=== PATIENT | female | born 1945 | race Caucasian/White ===

== ENCOUNTER → 2019-01-29 | Outpatient (CLI) | payer MEDICARE, BC ==
--- NOTE | 2019-01-29 15:55 | P.HPBAR ---
Bariatric H&P - History & Physicial H&P Date: 01/29/19 History & Physicial: Visit/CC: Patient initial contact: Initial weight: Initial weight in pounds: Height: Initial BMI: Last weight: Current weight: Current weight in pounds: Current BMI: [place] body weight (based on NIH guidelines): Excess body weight loss: The patient is a 73 year-old F who presents for Bariatric Assessment. HPI: She reports severe dysphagia and troubles swallowing. She is undergoing 5 months of medical supervised weight loss. She loves 2 hrs away. She has severe reflux and has had her throat stretching 2 days ago. She is looking into weight loss options. Her highest weight is 193 pounds. She has a pacemaker. She reports trouble breathing and has not seen a lung specialist. She reports chest pain with swallowing and taking TUMS without relief. She reports having a hiatal hernia as well. Her gallbladder has been removed. She has a family history of morbid obesity and is brought in by her daughter. ABDOMEN: Soft ASSESSMENT: 1. Dysphagia 2. Morbid obesity PLAN: 1. Labs today 2. Esophogram 3. Hiatal hernia repair 4. Need cardiac clearance 5. Pulmonology referral for her lungs 6. Manometry studies reviewed 7. Will need EGD in the future Bariatric Checklist Checklist: Plan: Checklist: EGD: 1. Hiatal hernia: 2. H. Pylori: HgbA1c: Vitamin D: Smoking: Primary care physician referral: Psychiatry clearance: Cardiology clearance: Sleep study: Diet journal: VTE risk score: VTE risk level: Rehab needs at discharge:
[2019-01-29 16:20] VITALS: BP 114/67; PULSE 71; TEMP 98.2; BMI 38.0
== END | disposition home or self-care (01) ==
LOC: BARWHC3 14:23
PROVIDERS: ATTEND Surgery Plastic and Reconstructive Surgery
DX: R13.10 Dysphagia, unspecified (principal); E66.01 Morbid (severe) obesity due to excess calories; Z68.38 Body mass index [BMI] 38.0-38.9, adult
CPT/HCPCS: 99201

== ENCOUNTER → 2019-02-11 | Outpatient (CLI) | payer MEDICARE, BC ==
[2019-02-11 13:46] LABS: HCT 41.6 % (34.0-46.0); HGB 12.9 gm/dL (11.4-16.0); Hypochromasia Slight; MCH 29.1 pg (25.0-35.0); MCHC 30.9 g/dL (31.0-37.0); Mean Platelet Volume 7.1; Platelet Count 278 k/uL (150-450); RBC 4.42 m/uL (3.80-5.40); RDW 13.6 % (11.5-15.5); WBC 5.1 k/uL (3.8-10.6)
[2019-02-11 13:57] LABS: Partial Thromboplastin Time 22.4 sec (22.0-30.0); Prothrombin Time 10.3 sec (9.0-12.0)
[2019-02-11 19:20] LABS: Iron Saturation 21.37 (12.00-45.00)
[2019-02-11 19:28] LABS: Vitamin D 25 Hydroxy 27.5 ng/mL (30.0-100.0)
[2019-02-11 20:00] LABS: Folate, Serum >24.0 ng/mL
[2019-02-11 20:02] LABS: Parathyroid Hormone Intact 33.8 pg/mL (14.0-72.0)
[2019-02-11 21:26] LABS: African American GFR (CKD) 64.3 (60.0-200.0); Albumin 4.3 g/dL (3.80-4.90); Albumin/Globulin Ratio 1.95 (1.60-3.17); Anion Gap 14.6 mmol/L (4.00-12.00); Calcium 9.6 mg/dL (8.7-10.3); Carbon Dioxide 21.4 mmol/L (21.6-31.8); Globulin 2.2 g/dL (1.6-3.3); LDL Cholesterol,Calculated 83.6 mg/dL (0.0-131.0); Magnesium 1.5 mg/dL (1.5-2.4); Phosphorus 2.9 mg/dL (2.4-5.1); Potassium 5.1 mmol/L (3.5-5.5); Total Bilirubin 0.4 mg/dL (0.3-1.2); Total Protein 6.5 g/dL (6.2-8.2); VLDL Calculation 30.4 mg/dL (5.00-40.00)
[2019-02-12 13:27] LABS: Zinc, Serum 68 ug/dL (60-130)
[2019-02-13 07:19] LABS: Vitamin A 73 ug/dL (38-106)
[2019-02-13 07:25] LABS: Vit B1(Thiamine) 72 ug/L (38-122)
[2019-02-15 10:40] LABS: Selenium 127 mcg/L (63-160)
== END | disposition home or self-care (01) ==
LOC: LABWHC1 13:06
PROVIDERS: ATTEND Surgery Plastic and Reconstructive Surgery
DX: E21.1 Secondary hyperparathyroidism, not elsewhere classified (principal); E44.0 Moderate protein-calorie malnutrition; E55.9 Vitamin D deficiency, unspecified; K74.1 Hepatic sclerosis; D50.9 Iron deficiency anemia, unspecified; K90.9 Intestinal malabsorption, unspecified; K50.90 Crohn's disease, unspecified, without complications; N19 Unspecified kidney failure
CPT/HCPCS: 36415; 80053; 80061; 82306; 82525; 82607; 82728; 82746; 83036; 83540; 83550; 83735; 83970; 84100; 84134; 84255; 84425; 84443; 84590; 84630; 85027; 85610; 85730; 93005

== ENCOUNTER → 2019-02-18 | Outpatient (CLI) | payer MEDICARE, BC ==
--- NOTE | 2019-02-18 12:17 | FL ---
EXAMINATION TYPE: FL barium swallow DATE OF EXAM: 02/18/2019 CLINICAL HISTORY: Dysphasia and history of multiple esophageal dilations TECHNIQUE: A single contrast esophagram is performed utilizing barium. A total of 38 seconds of fl uoroscopic time was utilized during procedure. 25 images submitted COMPARISON: None FINDINGS: There are diffuse tertiary contractions of esophagus compatible dysmotility. No filling def ect is seen. Mild cysts smooth tapered narrowing of the distal esophagus. No obstruction. Hypertrophi c and degenerative change of the spine. No evidence of gastroesophageal reflux. Cardiac device is seen. Atherosclerotic change aorta. Degenerative change of the vertebral column. Ca lcifications the soft tissue the neck likely related carotid artery atherosclerotic change. IMPRESSION: 1. Diffuse dysmotility compatible with presbyesophagus. 2. There is very mild smooth tapered narrowing of the distal esophagus with no evidence of obstructio n or delay in passage of contrast.
== END | disposition home or self-care (01) ==
LOC: RADUSWWP 11:10
PROVIDERS: ATTEND Surgery Plastic and Reconstructive Surgery
DX: K22.4 Dyskinesia of esophagus (principal); K22.2 Esophageal obstruction; Z88.2 Allergy status to sulfonamides
CPT/HCPCS: 74220

== ENCOUNTER 2021-12-03 20:23 | Observation (INO) | payer MEDICARE, BC ==
--- NOTE | 2021-12-03 22:16 | ED ---
General Adult HPI - General Chief complaint: Shortness of Breath Stated complaint: CHF, Confusion, Bi-lateral Leg Swelling, SOB Time Seen by Provider: 12/03/21 21:21 Source: patient, family, RN notes reviewed, old records reviewed Mode of arrival: ambulatory - History of Present Illness Initial comments: 76-year-old female history of CHF, chronic kidney disease presenting with increased lethargy and concern for worsening kidney function. Patient is accompanied by daughter who gives the majority of the history. Patient herself has no real complaints. She was recently admitted with CHF. She denies fever. Denies chest pain. She states she has been making urine throughout the day today. Poor appetite. No vomiting. - Related Data Home Medications Medication Instructions Recorded Confirmed Acetaminophen with Codeine 1 tab PO Q6H PRN 12/03/21 12/03/21 [Tylenol w/Codeine #4 Tablet] Apixaban [Eliquis] 5 mg PO BID 12/03/21 12/03/21 Atorvastatin [Lipitor] 40 mg PO DAILY 12/03/21 12/03/21 Cephalexin [Keflex] 500 mg PO Q8H 12/03/21 12/03/21 Cholecalciferol [Vitamin D3 (25 50 mcg PO DAILY 12/03/21 12/03/21 Mcg = 1000 Iu)] Furosemide [Lasix] 40 mg PO DAILY 12/03/21 12/03/21 Pantoprazole Sodium [Protonix] 20 mg PO DAILY 12/03/21 12/03/21 Pregabalin [Lyrica] 100 mg PO TID 12/03/21 12/03/21 Sacubitril/Valsartan [Entresto 24 1 tab PO BID 12/03/21 12/03/21 mg-26 mg Tablet] Vitamin E (Dl,Tocopheryl Acet) 400 unit PO DAILY 12/03/21 12/03/21 [Vitamin E (400 Iu = 180 mg)] carvediloL [Coreg] 3.125 mg PO BID 12/03/21 12/03/21 Allergies Allergy/AdvReac Type Severity Reaction Status Date / Time levofloxacin [From Levaquin] Allergy Swelling Verified 12/03/21 22:01 Sulfa (Sulfonamide Allergy Rash/Hives Verified 12/03/21 22:01 Antibiotics) Review of Systems ROS Statement: Those systems with pertinent positive or pertinent negative responses have been documented in the HPI. ROS Other: All systems not noted in ROS Statement are negative. Past Medical History Past Medical History: Cancer, Hyperlipidemia, Hypertension Additional Past Medical History / Comment(s): breast cancer left breast 2016 History of Any Multi-Drug Resistant Organisms: None Reported Past Surgical History: Breast Surgery, Cholecystectomy, Orthopedic Surgery, Pacemaker Additional Past Surgical History / Comment(s): left leg fracture left shoulder sx x 2 right shoulder sx lumpectomy left breast 2016 Past Anesthesia/Blood Transfusion Reactions: No Reported Reaction Type of Cardiac Device: Permanent Pacemaker Device Placement Date:: unknown Past Psychological History: No Psychological Hx Reported Smoking Status: Never smoker Past Alcohol Use History: None Reported Past Drug Use History: None Reported General Exam General appearance: alert, in no apparent distress Head exam: Present: atraumatic, normocephalic Eye exam: Present: normal appearance, PERRL ENT exam: Present: normal exam Neck exam: Present: normal inspection. Absent: tenderness, meningismus Respiratory exam: Present: normal lung sounds bilaterally. Absent: respiratory distress, wheezes Cardiovascular Exam: Present: regular rate, normal rhythm GI/Abdominal exam: Present: soft. Absent: distended, tenderness, guarding Extremities exam: Present: normal inspection, pedal edema (trace) Neurological exam: Present: alert, CN II-XII intact. Absent: oriented X3 (2), motor sensory deficit Psychiatric exam: Present: normal affect, normal mood Skin exam: Present: warm, dry, intact. Absent: cyanosis, diaphoretic Course Vital Signs 12/03/21 12/03/21 20:45 22:20 Temperature 98 F Pulse Rate 61 61 Respiratory 18 18 Rate Blood Pressure 98/50 101/54 O2 Sat by Pulse 98 96 Oximetry EKG Findings - EKG Comments: EKG Findings:: Rate is 71, WA interval prolonged 312, QRS duration 142, QTC 455, no ST segment changes. Medical Decision Making - Medical Decision Making 76-year-old female brought in for confusion, lethargy. Patient has history of CHF, CK D, UTI. She had a recent hospital admission at [facility]. These records are being requested. She has a normal CBC, CMP showing a creatinine of 2. She has a normal BNP. She has a minimally elevated troponin 0.052. She is anticoagulated at baseline. She has no active chest pain. She will be placed in observation for gentle IV hydration and trended cardiac enzymes. Case discussed with Dr. Callejas who will admit. - Lab Data Result diagrams: 12/03/21 22:21 12/03/21 22:21 Lab Results 12/03/21 12/03/21 12/03/21 Range/Units 22:21 22:21 22:21 WBC 6.8 (3.8-10.6) k/uL RBC 4.18 (3.80-5.40) m/uL Hgb 12.4 (11.4-16.0) gm/dL Hct 38.5 (34.0-46.0) % MCV 92.0 (80.0-100.0) fL MCH 29.6 (25.0-35.0) pg MCHC 32.1 (31.0-37.0) g/dL RDW 16.5 H (11.5-15.5) % Plt Count 217 (150-450) k/uL MPV 8.1 Neutrophils % 58 % Lymphocytes % 29 % Monocytes % 6 % Eosinophils % 3 % Basophils % 1 % Neutrophils # 3.9 (1.3-7.7) k/uL Lymphocytes # 1.9 (1.0-4.8) k/uL Monocytes # 0.4 (0-1.0) k/uL Eosinophils # 0.2 (0-0.7) k/uL Basophils # 0.1 (0-0.2) k/uL Anisocytosis Slight PT 10.3 (9.0-12.0) sec INR 0.9 (<1.2) APTT 24.0 (22.0-30.0) sec Sodium (137-145) mmol/L Potassium (3.5-5.1) mmol/L Chloride (98-107) mmol/L Carbon Dioxide (22-30) mmol/L Anion Gap mmol/L BUN (7-17) mg/dL Creatinine (0.52-1.04) mg/dL Est GFR (CKD-EPI)AfAm (>60 ml/min/1.73 sqM) Est GFR (CKD-EPI)NonAf (>60 ml/min/1.73 sqM) Glucose (74-99) mg/dL Plasma Lactic Acid Ziggy (0.7-2.0) mmol/L Calcium (8.4-10.2) mg/dL Magnesium (1.6-2.3) mg/dL Total Bilirubin (0.2-1.3) mg/dL AST (14-36) U/L ALT (4-34) U/L Alkaline Phosphatase (38-126) U/L Troponin I (0.000-0.034) ng/mL NT-Pro-B Natriuret Pep pg/mL Total Protein (6.3-8.2) g/dL Albumin (3.5-5.0) g/dL Urine Color Light Yellow Urine Appearance Clear (Clear) Urine pH 5.0 (5.0-8.0) Ur Specific [place] 1.008 (1.001-1.035) Urine Protein Negative (Negative) Urine Glucose (UA) Negative (Negative) Urine Ketones Negative (Negative) Urine Blood Negative (Negative) Urine Nitrite Negative (Negative) Urine Bilirubin Negative (Negative) Urine Urobilinogen <2.0 (<2.0) mg/dL Ur Leukocyte Esterase Negative (Negative) 12/03/21 12/03/21 12/03/21 Range/Units 22:21 22:21 22:21 WBC (3.8-10.6) k/uL RBC (3.80-5.40) m/uL Hgb (11.4-16.0) gm/dL Hct (34.0-46.0) % MCV (80.0-100.0) fL MCH (25.0-35.0) pg MCHC (31.0-37.0) g/dL RDW (11.5-15.5) % Plt Count (150-450) k/uL MPV Neutrophils % % Lymphocytes % % Monocytes % % Eosinophils % % Basophils % % Neutrophils # (1.3-7.7) k/uL Lymphocytes # (1.0-4.8) k/uL Monocytes # (0-1.0) k/uL Eosinophils # (0-0.7) k/uL Basophils # (0-0.2) k/uL Anisocytosis PT (9.0-12.0) sec INR (<1.2) APTT (22.0-30.0) sec Sodium 139 (137-145) mmol/L Potassium 4.9 (3.5-5.1) mmol/L Chloride 104 (98-107) mmol/L Carbon Dioxide 27 (22-30) mmol/L Anion Gap 8 mmol/L BUN 56 H (7-17) mg/dL Creatinine 2.02 H (0.52-1.04) mg/dL Est GFR (CKD-EPI)AfAm 27 (>60 ml/min/1.73 sqM) Est GFR (CKD-EPI)NonAf 23 (>60 ml/min/1.73 sqM) Glucose 105 H (74-99) mg/dL Plasma Lactic Acid Ziggy 0.9 (0.7-2.0) mmol/L Calcium 8.7 (8.4-10.2) mg/dL Magnesium 1.7 (1.6-2.3) mg/dL Total Bilirubin 0.7 (0.2-1.3) mg/dL AST 25 (14-36) U/L ALT 20 (4-34) U/L Alkaline Phosphatase 97 (38-126) U/L Troponin I 0.052 H* (0.000-0.034) ng/mL NT-Pro-B Natriuret Pep pg/mL Total Protein 6.7 (6.3-8.2) g/dL Albumin 3.8 (3.5-5.0) g/dL Urine Color Urine Appearance (Clear) Urine pH (5.0-8.0) Ur Specific [place] (1.001-1.035) Urine Protein (Negative) Urine Glucose (UA) (Negative) Urine Ketones (Negative) Urine Blood (Negative) Urine Nitrite (Negative) Urine Bilirubin (Negative) Urine Urobilinogen (<2.0) mg/dL Ur Leukocyte Esterase (Negative) 12/03/21 Range/Units 22:21 WBC (3.8-10.6) k/uL RBC (3.80-5.40) m/uL Hgb (11.4-16.0) gm/dL Hct (34.0-46.0) % MCV (80.0-100.0) fL MCH (25.0-35.0) pg MCHC (31.0-37.0) g/dL RDW (11.5-15.5) % Plt Count (150-450) k/uL MPV Neutrophils % % Lymphocytes % % Monocytes % % Eosinophils % % Basophils % % Neutrophils # (1.3-7.7) k/uL Lymphocytes # (1.0-4.8) k/uL Monocytes # (0-1.0) k/uL Eosinophils # (0-0.7) k/uL Basophils # (0-0.2) k/uL Anisocytosis PT (9.0-12.0) sec INR (<1.2) APTT (22.0-30.0) sec Sodium (137-145) mmol/L Potassium (3.5-5.1) mmol/L Chloride (98-107) mmol/L Carbon Dioxide (22-30) mmol/L Anion Gap mmol/L BUN (7-17) mg/dL Creatinine (0.52-1.04) mg/dL Est GFR (CKD-EPI)AfAm (>60 ml/min/1.73 sqM) Est GFR (CKD-EPI)NonAf (>60 ml/min/1.73 sqM) Glucose (74-99) mg/dL Plasma Lactic Acid Ziggy (0.7-2.0) mmol/L Calcium (8.4-10.2) mg/dL Magnesium (1.6-2.3) mg/dL Total Bilirubin (0.2-1.3) mg/dL AST (14-36) U/L ALT (4-34) U/L Alkaline Phosphatase (38-126) U/L Troponin I (0.000-0.034) ng/mL NT-Pro-B Natriuret Pep 506 pg/mL Total Protein (6.3-8.2) g/dL Albumin (3.5-5.0) g/dL Urine Color Urine Appearance (Clear) Urine pH (5.0-8.0) Ur Specific [place] (1.001-1.035) Urine Protein (Negative) Urine Glucose (UA) (Negative) Urine Ketones (Negative) Urine Blood (Negative) Urine Nitrite (Negative) Urine Bilirubin (Negative) Urine Urobilinogen (<2.0) mg/dL Ur Leukocyte Esterase (Negative) Disposition Clinical Impression: GAIL (acute kidney injury), Elevated troponin I level Disposition: ADMITTED IP TO THIS [facility] Condition: Stable Is patient prescribed a controlled substance at d/c from ED?: No Referrals: Nonstaff,Physician [Primary Care Provider] - 1-2 days Time of Disposition: 23:25
[2021-12-03 22:27] LABS: Anisocytosis Slight; Basophils # (A) 0.1 k/uL (0-0.2); Basophils % (A) 1 %; Eosinophils # (A) 0.2 k/uL (0-0.7); Eosinophils % (A) 3 %; HCT 38.5 % (34.0-46.0); HGB 12.4 gm/dL (11.4-16.0); Lymphocytes # (A) 1.9 k/uL (1.0-4.8); Lymphocytes % (A) 29 %; MCH 29.6 pg (25.0-35.0); MCHC 32.1 g/dL (31.0-37.0); Mean Platelet Volume 8.1; Monocytes # (A) 0.4 k/uL (0-1.0); Monocytes % (A) 6 %; Neutrophils # (A) 3.9 k/uL (1.3-7.7); Neutrophils % (A) 58 %; Platelet Count 217 k/uL (150-450); RBC 4.18 m/uL (3.80-5.40); RDW 16.5 % (11.5-15.5); WBC 6.8 k/uL (3.8-10.6)
[2021-12-03 22:35] LABS: Appearance,Urine Clear (Clear); Bilirubin,Urine Negative (Negative); Blood,Urine Negative (Negative); Color,Urine Light Yellow; Glucose,Urine (UA) Negative (Negative); INR 0.9 (<1.2); Ketones,Urine Negative (Negative); Leukocyte Esterase,Urine Negative (Negative); Nitrite,Urine Negative (Negative); Protein,Urine Negative (Negative); Prothrombin Time 10.3 sec (9.0-12.0); Specific Gravity,Urine 1.008 (1.001-1.035); Urobilinogen,Urine <2.0 mg/dL (<2.0)
[2021-12-03 22:45] LABS: Albumin 3.8 g/dL (3.5-5.0); Calcium 8.7 mg/dL (8.4-10.2); Magnesium 1.7 mg/dL (1.6-2.3); Potassium 4.9 mmol/L (3.5-5.1); Total Bilirubin 0.7 mg/dL (0.2-1.3); Total Protein 6.7 g/dL (6.3-8.2)
--- NOTE | 2021-12-03 23:30 | XR ---
EXAMINATION TYPE: XR chest 2V DATE OF EXAM: 12/03/2021 COMPARISON: NONE HISTORY: Short of breath TECHNIQUE: 2 views FINDINGS: Heart is enlarged. No heart failure. There is left axillary pacemaker. There is no pleural effusion. Thorax is intact IMPRESSION: Cardiomegaly. No active cardiopulmonary disease.
[2021-12-03] MEDS ORDERED: ACETAMINOPHEN TAB 325 MG TAB PO PRN (23:33)
[2021-12-03] MEDS ORDERED: NALOXONE 0.4 MG/ML 1 ML VIAL IV PRN (23:33)
[2021-12-04] MEDS: SODIUM CHLORIDE 0.9% 1,000 ML IV SCH ×2 (02:50→20:51)
--- NOTE | 2021-12-04 03:19 | P.HPIM ---
History of Present Illness H&P Date: 12/03/21 Chief Complaint: Generalized weakness 76-year-old female with hypertension and congestive heart failure Patient comes in complaining of feeling shaky and weak unable to stand she claims that this been going on for 6 months last time she felt fine was last summer and fall but then she traveled to [place] and admitted to the hospital around May of last year is when her overall alcohol worse. She is not aware of any specific diagnosis however she does recall getting one session of hemodialysis at that time she does have gradually worsening renal function. Otherwise she currently denies any nausea vomiting denies abdominal pain changes in urine or bowel habits denies any fevers or chills denies any cough. She reports that generally she feels weak and tired for which she came in the hospital for evaluation Otherwise she denies any fevers or chills denies any chest pain trouble breathing nausea vomiting or coughing. Patient recalls that during her admission back in May [place] she could not read it with intubations admitted to the ICU she was also diagnosed with a blood clots PE at that time Review of Systems Pertinent positives as noted in HPI. All other systems were reviewed and are negative Past Medical History Past Medical History: Cancer, Hyperlipidemia, Hypertension, Pulmonary Embolus (PE) Additional Past Medical History / Comment(s): breast cancer left breast 2016 History of Any Multi-Drug Resistant Organisms: None Reported Past Surgical History: Breast Surgery, Cholecystectomy, Orthopedic Surgery, Pacemaker Additional Past Surgical History / Comment(s): left leg fracture left shoulder sx x 2 right shoulder sx lumpectomy left breast 2016 Past Anesthesia/Blood Transfusion Reactions: No Reported Reaction Type of Cardiac Device: Permanent Pacemaker Device Placement Date:: unknown Past Psychological History: No Psychological Hx Reported Smoking Status: Never smoker Past Alcohol Use History: None Reported Additional Past Alcohol Use History / Comment(s): quit smoking 2005 Past Drug Use History: None Reported - Past Family History Family Family Medical History: No Reported History Medications and Allergies Home Medications Medication Instructions Recorded Confirmed Type Acetaminophen with Codeine 1 tab PO Q6H PRN 12/03/21 12/03/21 History [Tylenol w/Codeine #4 Tablet] Apixaban [Eliquis] 5 mg PO BID 12/03/21 12/03/21 History Atorvastatin [Lipitor] 40 mg PO DAILY 12/03/21 12/03/21 History Cephalexin [Keflex] 500 mg PO Q8H 12/03/21 12/03/21 History Cholecalciferol [Vitamin D3 (25 50 mcg PO DAILY 12/03/21 12/03/21 History Mcg = 1000 Iu)] Furosemide [Lasix] 40 mg PO DAILY 12/03/21 12/03/21 History Pantoprazole Sodium [Protonix] 20 mg PO DAILY 12/03/21 12/03/21 History Pregabalin [Lyrica] 100 mg PO TID 12/03/21 12/03/21 History Sacubitril/Valsartan [Entresto 24 1 tab PO BID 12/03/21 12/03/21 History mg-26 mg Tablet] Vitamin E (Dl,Tocopheryl Acet) 400 unit PO DAILY 12/03/21 12/03/21 History [Vitamin E (400 Iu = 180 mg)] carvediloL [Coreg] 3.125 mg PO BID 12/03/21 12/03/21 History Allergies Allergy/AdvReac Type Severity Reaction Status Date / Time levofloxacin [From Levaquin] Allergy Swelling Verified 12/03/21 22:01 Sulfa (Sulfonamide Allergy Rash/Hives Verified 12/03/21 22:01 Antibiotics) Physical Exam Vitals: Vital Signs Temp Pulse Pulse Resp BP BP Pulse Ox 12/04/21 02:10 97.7 F 67 20 123/69 97 12/04/21 01:38 61 18 104/54 97 12/03/21 22:20 61 18 101/54 96 12/03/21 20:45 98 F 61 18 98/50 98 Intake and Output 12/03/21 12/03/21 12/04/21 14:59 22:59 06:59 Other: Voiding Method Diaper External Catheter # Voids 1 Weight 88.904 kg 88.904 kg Constitutional: No acute distress, conversant, pleasant, Eyes: Anicteric sclerae, moist conjunctiva, Pupils equal round reactive to light ENMT: NC/AT Oropharynx clear, no erythema, or exudates Neck: Supple, no masses, or JVD No carotid bruits No thyromegaly Lungs: Clear to auscultation Clear to percussion Normal respiratory effort, no accessory muscle use Cardiovascular: Heart regular in rate and rhythm, No murmurs, gallops, or rubs No peripheral edema Abdominal: Soft Nontender, no guarding, rebound or rigidity Abdomen moving with respiration Normoactive bowel sounds No hepatomegaly, No splenomegaly No palpable mass No abdominal wall hernia noted Skin: Normal temperature, tone, texture, turgor No induration No subcutaneous nodules No rash, lesions No ulcers Extremities: No digital cyanosis No clubbing Pedal pulses intact and symmetrical Radial pulses intact and symmetrical No calf tenderness Psychiatric: Alert and oriented to person, place and time Neuro Muscles Strength 4/5 in all 4 extremities , patient has asterixis in bilateral upper extremities Sensation to light touch grossly present throughout Cranial nerves II-XII grossly intact No focal sensory deficits Lymphatics: no palpable cervical or supraclavicular , or inguinal lymph nodes Results CBC & Chem 7: 12/03/21 22:21 12/03/21 22:21 Labs: Abnormal Lab Results - Last 24 Hours (Table) 12/03/21 12/03/21 12/03/21 Range/Units 22:21 22:21 22:21 RDW 16.5 H (11.5-15.5) % BUN 56 H (7-17) mg/dL Creatinine 2.02 H (0.52-1.04) mg/dL Glucose 105 H (74-99) mg/dL Troponin I 0.052 H* (0.000-0.034) ng/mL 12/03/21 Range/Units 23:43 RDW (11.5-15.5) % BUN (7-17) mg/dL Creatinine (0.52-1.04) mg/dL Glucose (74-99) mg/dL Troponin I 0.050 H* (0.000-0.034) ng/mL Thrombosis Risk Factor Assmnt - Choose All That Apply Each Risk Factor Represents 3 Points: Age 75 years or older, History of DVT/PE Thrombosis Risk Factor Assessment Total Risk Factor Score: 6 Thrombosis Risk Factor Assessment Level: High Risk Assessment and Plan Assessment: Acute kidney injury and 60 daily Early signs of uremia Avoid nephrotoxic hold valsartan and diuretics Iv fluid hydration gentle Monitor urine output follow-up renal function Obtain records from [facility] Patient claims recent diagnosis of PE he is currently on Eliquis, continue 5 mg twice a day Monitor oxygen requirement, supplemental oxygen as needed Reported history of congestive heart failure no available echocardiogram Await records Hypertension, resume cardiac meds Hold ARB inhibitors due to renal function Elevated troponin trending down Possible component of COPD with chronic troponin elevation Patient denies any chest pain Full code Anticipated length of stay less than 2 midnights DVT prophylaxis heparin subcutaneously
[2021-12-04 03:32] LABS: Anisocytosis Slight; Basophils % (A) 0 %; Eosinophils # (A) 0.2 k/uL (0-0.7); Eosinophils % (A) 2 %; HCT 36.4 % (34.0-46.0); HGB 11.6 gm/dL (11.4-16.0); Hypochromasia Slight; Lymphocytes # (A) 1.8 k/uL (1.0-4.8); Lymphocytes % (A) 26 %; MCH 29.9 pg (25.0-35.0); MCHC 31.9 g/dL (31.0-37.0); MCV 93.6 fL (80.0-100.0); Mean Platelet Volume 8.1; Monocytes # (A) 0.4 k/uL (0-1.0); Monocytes % (A) 6 %; Neutrophils # (A) 4.3 k/uL (1.3-7.7); Neutrophils % (A) 63 %; Platelet Count 195 k/uL (150-450); RBC 3.89 m/uL (3.80-5.40); RDW 16.3 % (11.5-15.5); WBC 6.8 k/uL (3.8-10.6)
[2021-12-04 03:53] LABS: Albumin 3.4 g/dL (3.5-5.0); Calcium 8.9 mg/dL (8.4-10.2); Potassium 4.6 mmol/L (3.5-5.1); Total Bilirubin 0.6 mg/dL (0.2-1.3); Total Protein 6.1 g/dL (6.3-8.2)
[2021-12-04] MEDS: carvediloL 3.125 MG TAB PO SCH ×2 (06:32→17:11)
[2021-12-04] MEDS: ATORVASTATIN 40 MG TAB PO SCH (10:24)
[2021-12-04] MEDS: APIXABAN 5 MG TAB PO SCH ×2 (10:24→20:48)
[2021-12-04] MEDS: PANTOPRAZOLE 40 MG TABLET PO SCH (10:24)
[2021-12-04] MEDS: PREGABALIN 100 MG CAP PO SCH ×3 (10:24→20:48)
[2021-12-04 11:08] VITALS: RESP 18
--- NOTE | 2021-12-04 15:10 | P.PN ---
Subjective Progress Note Date: 12/04/21 76-year-old female admitted yesterday with generalized weakness and lethargy. She was found to have acute kidney injury which was most likely secondary to dehydration. Creatinine has improved today with IV fluids. She denies any headaches, no chest pain, shortness of breath, no dizziness or lightheadedness, but she is complaining of significant weakness. She has not ambulated yet. Troponin was slightly elevated yesterday but have plateaued at 0.05, she has any chest pain or chest pressure, EKG shows no ST changes Objective - Vital Signs Vital signs: Vital Signs Temp 98.2 F 12/04/21 08:00 Pulse 66 12/04/21 08:00 Resp 18 12/04/21 08:00 BP 120/73 12/04/21 08:00 Pulse Ox 95 12/04/21 08:00 Intake & Output 12/03/21 12/04/21 12/04/21 18:59 06:59 18:59 Intake Total 180 Output Total 400 Balance -220 Weight 88.904 kg Intake: Oral 180 Output: Urine 400 Other: Voiding Method Diaper Diaper External Catheter External Catheter # Voids 1 - Constitutional General appearance: Present: cooperative, no acute distress, obese - EENT Eyes: Present: EOMI, PERRLA - Neck Neck: Present: normal ROM. Absent: rigidity - Respiratory Respiratory: bilateral: diminished, negative: wheezing - Cardiovascular Rhythm: regular Heart sounds: normal: S1, S2 Abnormal Heart Sounds: Absent: systolic murmur, diastolic murmur - Gastrointestinal General gastrointestinal: Present: normal bowel sounds. Absent: distended, tenderness - Integumentary Integumentary: Absent: cyanotic, jaundiced, pale - Neurologic Neurologic: Present: CNII-XII intact. Absent: focal deficits - Musculoskeletal Musculoskeletal: Present: strength equal bilaterally - Psychiatric Psychiatric: Present: A&O x's 3, appropriate affect, intact judgment & insight - Labs CBC & Chem 7: 12/04/21 03:13 12/04/21 03:13 Labs: Abnormal Lab Results - Last 24 Hours (Table) 12/03/21 12/03/21 12/03/21 Range/Units 22:21 22:21 22:21 RDW 16.5 H (11.5-15.5) % BUN 56 H (7-17) mg/dL Creatinine 2.02 H (0.52-1.04) mg/dL Glucose 105 H (74-99) mg/dL AST (14-36) U/L Troponin I 0.052 H* (0.000-0.034) ng/mL Total Protein (6.3-8.2) g/dL Albumin (3.5-5.0) g/dL 12/03/21 12/04/21 12/04/21 Range/Units 23:43 03:13 03:13 RDW 16.3 H (11.5-15.5) % BUN (7-17) mg/dL Creatinine (0.52-1.04) mg/dL Glucose (74-99) mg/dL AST (14-36) U/L Troponin I 0.050 H* 0.051 H* (0.000-0.034) ng/mL Total Protein (6.3-8.2) g/dL Albumin (3.5-5.0) g/dL 12/04/21 Range/Units 03:13 RDW (11.5-15.5) % BUN 53 H (7-17) mg/dL Creatinine 1.80 H (0.52-1.04) mg/dL Glucose 135 H (74-99) mg/dL AST 48 H (14-36) U/L Troponin I (0.000-0.034) ng/mL Total Protein 6.1 L (6.3-8.2) g/dL Albumin 3.4 L (3.5-5.0) g/dL Assessment and Plan Assessment: Acute kidney injury -Improving -Most likely prerenal from dehydration and decreased oral intake -Creatinine 1.8 today down from 2.0 -Continue fluids -Avoid nephrotoxins Elevated troponin -Troponin plateaued at 0.05 -No chest pain, EKG shows no ST elevation -most likely secondary to renal failure -no further workup at this time Acute metabolic encephalopathy -Patient reports that she slept for 22 hours at home and has been very lethargic -No focal neurological deficits -Most likely secondary to decreased renal clearance of Lyrica and possibly other medications in the setting of renal failure -Mentation improving -Supportive care History of PE Continue Eliquis Discharge home tomorrow Time with Patient: Less than 30
[2021-12-04] MEDS: Acetaminophen-Codeine 300-30mg TAB PO PRN (19:47)
[2021-12-05] MEDS: carvediloL 3.125 MG TAB PO SCH (06:13)
[2021-12-05 07:07] LABS: Anisocytosis Slight; Basophils % (A) 1 %; Eosinophils # (A) 0.1 k/uL (0-0.7); Eosinophils % (A) 3 %; HCT 37.9 % (34.0-46.0); HGB 11.7 gm/dL (11.4-16.0); Hypochromasia Slight; Lymphocytes # (A) 1.9 k/uL (1.0-4.8); Lymphocytes % (A) 40 %; MCH 29.3 pg (25.0-35.0); MCV 94.5 fL (80.0-100.0); Monocytes # (A) 0.3 k/uL (0-1.0); Monocytes % (A) 7 %; Neutrophils # (A) 2.2 k/uL (1.3-7.7); Neutrophils % (A) 46 %; Platelet Count 197 k/uL (150-450); RBC 4.01 m/uL (3.80-5.40); RDW 16.2 % (11.5-15.5); WBC 4.8 k/uL (3.8-10.6)
[2021-12-05 07:23] LABS: ALT 15 U/L (4-34); AST 22 U/L (14-36); African American GFR (CKD) 64 (>60 ml/min/1.73 sqM); Albumin 3.1 g/dL (3.5-5.0); Alkaline Phosphatase 75 U/L (38-126); Anion Gap 6 mmol/L; Blood Urea Nitrogen 30 mg/dL (7-17); Calcium 8.7 mg/dL (8.4-10.2); Carbon Dioxide 26 mmol/L (22-30); Chloride 110 mmol/L (98-107); Glucose 102 mg/dL (74-99); Non-African American GFR(CKD) 55 (>60 ml/min/1.73 sqM); Potassium 4.9 mmol/L (3.5-5.1); Sodium 142 mmol/L (137-145); Total Bilirubin 0.6 mg/dL (0.2-1.3); Total Protein 5.9 g/dL (6.3-8.2)
[2021-12-05] MEDS: APIXABAN 5 MG TAB PO SCH (09:56)
[2021-12-05] MEDS: Acetaminophen-Codeine 300-30mg TAB PO PRN (09:56)
[2021-12-05] MEDS: ATORVASTATIN 40 MG TAB PO SCH (09:56)
[2021-12-05] MEDS: PANTOPRAZOLE 40 MG TABLET PO SCH (09:56)
[2021-12-05] MEDS: PREGABALIN 100 MG CAP PO SCH (09:56)
[2021-12-05 10:55] VITALS: BP 141/65; PULSE 60; TEMP 97.6
--- NOTE | 2021-12-05 12:43 | P.DS ---
Providers Date of admission: 12/03/21 23:33 Expected date of discharge: 12/05/21 Attending physician: Edgard Olvera MD Primary care physician: Physician Nonstaff Hospital Course: Discharge Diagnosis: Acute kidney injury Elevated troponins, flat acute coronary event ruled out. 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 Patient presented to the emergency department on 12/03/21 with a chief complaint of increased weakness over the past 6 months. She underwent full evaluation in the emergency department and was found to have an elevated troponin of 0.052 and in acute kidney injury with BUN 56, creatinine 2.02, and GFR of 23 with baseline creatinine of 1.0. EKG revealing atrial paced rhythm at 71 bpm. Chest x-ray negative for acute cardiopulmonary process. ProBNP 506. Urinalysis negative for infection. TSH 0.943. Patient was admitted under services. Troponins were trended and flat at 0.052, 0.050, and 0.051. Patient asymptomatic for any cardiac complaints throughout admission including chest pain, palpitations, shortness of breath, nausea, neck pain, back pain or shoulder pain. Acute coronary event ruled out with no further workup necessary at that time. Patient received IV fluid hydration for treatment of her kidney injury and creatinine improving daily resulting in full resolution of GAIL. After patient received fluid hydration she reports complete resolution of weakness. Patient ambulatory independently with a rolling walker and demonstrated a steady gait to and from bathroom and up and down the halls without any difficulties. She was evaluated by physical therapy who recommended patient discharged home at this time. Patient was offered home care services but declined, stating she has plenty of support with her and reports son and daughter are nearby. Acute kidney injury was likely secondary to dehydration and daily use of diuretic Lasix. This was discussed with the patient and patient was very adamant that she resumes her diuretic. Patient was educated that we will resume Lasix but it is of utmost importance that she keeps herself hydrated and needs to make sure she is urinating appropriately when taking any diuretic as failure to maintain hydration resulted in dehydration and can again damage her kidneys. A prescription sent for patient to have repeat labs drawn in 3 days to monitor renal function now that we are resuming her oral diuretic. Patient verbalized understanding of importance of keeping herself hydrated and having labs redrawn. Lab results to be sent to patient's PCP and patient was given additional information on PCP and analytic manager locally as she reports she is going to be changing providers. Renal function upon discharge was BUN of 30, creatinine 0.99, and GFR 55. .Vital signs stable. Patient medically stable for discharge home and to follow up outpatient with PCP and cardiology. Physical examination: Patient seen and examined at bedside.she was free from any complaints or concerns including headache, lightheadedness, dizziness, chest pain, palpitations, shortness of breath, dyspnea with exertion, nausea, vomiting, or experiencing any numbness/tingling/weakness in her extremities. Ambulating with rolling walker in the room and up and down the halls without any reported difficulties. Patient reports feeling great this morning and denies any concerns regarding discharge. Patient reports she feels more than ready to go home. Patient medically stable for discharge at this time. Vital signs reviewed and stable. General: Nontoxic, no distress and appears stated age. Derm: Skin warm and dry, normal coloration for ethnicity. Head: Atraumatic, normocephalic and symmetric. Eyes: EOMs intact, no lid lag, and anicteric sclera Mouth: no lip lesions, mucus membranes moist Cardiovascular: regular rate and rhythm with normal S1S2, no murmur, positive posterior tibial pulses bilaterally, and cap refill < 2 seconds. Lungs: Respirations even, regular, and unlabored on room air. Lungs CTA bilaterally, no rhonchi, no rales, no wheezing, and no accessory muscle usage. Abdominal: soft, nontender to palpation, no guarding, no appreciable organomegaly Ext: ROM intact. No gross muscle atrophy, no edema, no contractures Neuro: Speech clear, face symmetrical and CN II-XII grossly intact with no noted focal neuro deficits Psych: Alert and oriented to person, place, time, and situation. Appropriate and pleasant affect. A total of 38 minutes of time were spent preparing this complex discharge summary. Tee Prince NP rendered care for this patient independently, reviewed the findings and plan as documented in the note above. I did not physically speak with or examine the patient on this date. Patient Condition at Discharge: Stable Plan - Discharge Summary Discharge Rx Participant: No New Discharge Prescriptions: Continue Vitamin E (Dl,Tocopheryl Acet) [Vitamin E (400 Iu = 180 mg)] 400 unit PO DAILY Cholecalciferol [Vitamin D3 (25 Mcg = 1000 Iu)] 50 mcg PO DAILY Pantoprazole Sodium [Protonix] 20 mg PO DAILY Pregabalin [Lyrica] 100 mg PO TID Sacubitril/Valsartan [Entresto 24 mg-26 mg Tablet] 1 tab PO BID Furosemide [Lasix] 40 mg PO DAILY Acetaminophen with Codeine [Tylenol w/Codeine #4 Tablet] 1 tab PO Q6H PRN PRN Reason: Pain carvediloL [Coreg] 3.125 mg PO BID Atorvastatin [Lipitor] 40 mg PO DAILY Apixaban [Eliquis] 5 mg PO BID Discontinued Cephalexin [Keflex] 500 mg PO Q8H Discharge Medication List Acetaminophen with Codeine [Tylenol w/Codeine #4 Tablet] 1 tab PO Q6H PRN 12/03/21 [History] Apixaban [Eliquis] 5 mg PO BID 12/03/21 [History] Atorvastatin [Lipitor] 40 mg PO DAILY 12/03/21 [History] Cholecalciferol [Vitamin D3 (25 Mcg = 1000 Iu)] 50 mcg PO DAILY 12/03/21 [History] Furosemide [Lasix] 40 mg PO DAILY 12/03/21 [History] Pantoprazole Sodium [Protonix] 20 mg PO DAILY 12/03/21 [History] Pregabalin [Lyrica] 100 mg PO TID 12/03/21 [History] Sacubitril/Valsartan [Entresto 24 mg-26 mg Tablet] 1 tab PO BID 12/03/21 [History] Vitamin E (Dl,Tocopheryl Acet) [Vitamin E (400 Iu = 180 mg)] 400 unit PO DAILY 12/03/21 [History] carvediloL [Coreg] 3.125 mg PO BID 12/03/21 [History] Follow up Appointment(s)/Referral(s): Nnamdi Yee MD [STAFF PHYSICIAN] - 1 Week (Patient family requesting to find own analytic manager closer to them. ) Eamon Matias [STAFF PHYSICIAN] - 1-2 Days (Patient family requesting to find their own primary physician near them. ) Ambulatory/Diagnostic Orders: Basic Metabolic Panel [LAB.AMB] Time Frame: 3 Days, Location: None Selected Basic Metabolic Panel [LAB.AMB] Time Frame: 3 Days, Location: None Selected Activity/Diet/Wound Care/Special Instructions: Activity: As tolerated. Take breaks as needed. Diet: Heart healthy and carb consistent diet. Avoid salts, or foods with hidden salts such as canned or boxed foods and frozen dinners. Extra salt makes your heart work harder and traps the fluid in your body for longer. Special Instructions: Take all of your medications as directed and remember to keep all of your doctor's appointments and follow-up as needed. You have been provided with the number for a primary care provider, Dr. Nicolas as well as analytic manager Dr. Yee local to this area since you are currently looking for a new provider and no longer seeing Dr. Harper Wen. It is important to have repeat labs drawn in 3 days to ensure you continue to have good renal function now that we are resuming your lasix. Remember as we discussed it is important to drink water when you're taking the diuretic to prevent dehydration thus resulting in another acute kidney injury. Thank you for allowing us to participate in your care, it was truly a pleasure having you for our patient!!! Discharge Disposition: HOME SELF-CARE
== END 2021-12-05 15:07 | disposition home or self-care (01) ==
LOC: EC 20:23 → 3SCARD 23:33
PROVIDERS: ADMIT Internal Medicine; ATTEND Internal Medicine
DX: N17.9 Acute kidney failure, unspecified (principal); R77.8 Other specified abnormalities of plasma proteins; I13.0 Hypertensive heart and chronic kidney disease with heart failure and stage 1 through stage 4 chronic kidney disease, or unspecified chronic kidney disease; I50.9 Heart failure, unspecified; N18.9 Chronic kidney disease, unspecified; G93.41 Metabolic encephalopathy; E86.0 Dehydration; Z86.711 Personal history of pulmonary embolism; I25.10 Atherosclerotic heart disease of native coronary artery without angina pectoris; Z95.0 Presence of cardiac pacemaker; E78.5 Hyperlipidemia, unspecified; E66.9 Obesity, unspecified; Z68.39 Body mass index [BMI] 39.0-39.9, adult; Z71.9 Counseling, unspecified; Z79.01 Long term (current) use of anticoagulants; Z79.899 Other long term (current) drug therapy; Z85.3 Personal history of malignant neoplasm of breast; Z87.891 Personal history of nicotine dependence; Z86.718 Personal history of other venous thrombosis and embolism; Z87.440 Personal history of urinary (tract) infections; Z90.49 Acquired absence of other specified parts of digestive tract; Z88.2 Allergy status to sulfonamides; Z88.1 Allergy status to other antibiotic agents
CPT/HCPCS: 99285; 36415; 94760; 93005; 97161; 83880; 80053 ×3; 84443; 83605; 83735; 84484 ×2; 85025 ×3; 85610; 85730; 81003; 71046; G0378 ×2